=== PATIENT | male | born 1975 | race Caucasian/White ===

== ENCOUNTER 2019-11-20 16:49 | Inpatient (IN) | payer OTHER ==
[2019-11-20 18:47] VITALS: BMI 27.3
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
[2019-11-20] MEDS ORDERED: P-EPHED 60MG/TRIPROLIDI 2.5MG TABLET PO PRN (19:40)
[2019-11-20] MEDS ORDERED: MAGNESIUM HYDROX 2400MG/30ML ORAL SUSPENSION 30 ML CUP PO PRN (19:40)
[2019-11-20] MEDS ORDERED: ACETAMINOPHEN 325 MG TABLET (FP) PO PRN (19:40)
[2019-11-20] MEDS ORDERED: MAG HYDROX/AL HYDROX/SIMETH 30 ML UNIT-DOSE CUP PO PRN (19:40)
[2019-11-20] MEDS ORDERED: LOPERAMIDE HCL 2 MG CAPSULE PO PRN (19:40)
[2019-11-20] MEDS ORDERED: MAGNESIUM CITRATE 300 ML BOTTLE PO PRN (19:40)
[2019-11-20] MEDS ORDERED: NICOTINE POLACRILEX 2 MG GUM BUC PRN (19:40)
[2019-11-20] MEDS ORDERED: MENTHOL/PHENOL 1 EACH UD MM PRN (19:40)
[2019-11-20] MEDS ORDERED: guaiFENesin 200 MG/10 ML 10 ML UNIT-DOSE CUPS PO PRN (19:40)
[2019-11-20] MEDS ORDERED: ALBUTEROL SO4 HFA INHALER IH PRN (19:45)
[2019-11-20] MEDS ORDERED: BUPRENORPHINE/NALOXONE 2 MG/0.5 MG FILM PACKET SL ONE (19:55)
[2019-11-20] MEDS: amLODIPine BESYLATE 5 MG TABLET (FP) PO SCH (21:21)
[2019-11-20] MEDS: MELATONIN 5 MG TABLETS PO PRN (21:21)
[2019-11-20] MEDS: THIAMINE HCL 100 MG TABLET (FP) PO SCH (21:21)
[2019-11-21] MEDS ORDERED: BUPRENORPHINE/NALOXONE 4 MG/1 MG FILM PACKET SL ONE (06:00)
[2019-11-21 10:15] LABS: HEMATOCRIT 42.1 % (35.4-49); HEMOGLOBIN 13.9 GM/dL (11.7-16.9); MCH 28.1 pg (25.7-33.7); MEAN PLT VOLUME 8.4 fl (7.5-11.1); PLATELET COUNT 224 K/MM3 (134-434); RBC 4.95 M/mm3 (4.00-5.60); RDW 14.3 % (11.9-15.9); WHITE BLOOD COUNT 6.1 K/mm3 (4.0-10.0)
[2019-11-21 10:25] LABS: ALBUMIN 3.4 g/dl (3.4-5.0); BILIRUBIN,TOTAL 1.4 mg/dL (0.2-1); CALCIUM 8.7 mg/dL (8.5-10.1); CREATININE 1.3 mg/dL (0.55-1.3); POTASSIUM 3.6 mmol/L (3.5-5.1); TOT PROT 6.4 g/dl (6.4-8.2)
[2019-11-21] MEDS: hydrOXYzine PAMOATE 25 MG CAPSULE (FP) PO PRN ×2 (10:37→21:24)
[2019-11-21] MEDS: PRENATAL VITAMINS W/ FOLIC ACID TABLET (FP) PO SCH (10:37)
[2019-11-21] MEDS: amLODIPine BESYLATE 5 MG TABLET (FP) PO SCH (10:37)
--- NOTE | 2019-11-21 10:49 | PN ---
[facility] Progress Note Note: Pt is a 44 y/o male with a hx of polysubstance use disorder admitted yesterday from [facility]. Pt reports he takes Suboxone 8 mg sl TID at [facility] on [address] [place] [address] Richards. Pt reports he took his last dose of suboxone 8mg tid on 11/10/19 due to "i got kicked out of my house and left everything". Pt was restarted on suboxone 2 mg/0.5 mg sl on admission and 4mg/1mg sl this morning but requesting to continue with his regular dose of 8mg sl TID. Vital Signs - 24 hr 11/20/19 11/20/19 11/20/19 18:28 20:50 21:50 Temperature 97.6 F 97.8 F Pulse Rate 87 82 81 Respiratory 18 17 17 Rate Blood Pressure 144/98 139/100 147/104 H 11/21/19 11/21/19 11/21/19 00:30 03:30 07:16 Temperature 97.8 F Pulse Rate 69 Respiratory 18 18 18 Rate Blood Pressure 124/92 Laboratory Results - last 24 hr 11/21/19 11/21/19 08:00 08:00 WBC 6.1 RBC 4.95 Hgb 13.9 Hct 42.1 MCV 85.0 MCH 28.1 MCHC 33.0 RDW 14.3 D Plt Count 224 MPV 8.4 Sodium 139 Potassium 3.6 Chloride 106 Carbon Dioxide 26 Anion Gap 7 L BUN 12.0 Creatinine 1.3 Est GFR (CKD-EPI)AfAm 76.37 Est GFR (CKD-EPI)NonAf 65.90 Random Glucose 124 H Calcium 8.7 Total Bilirubin 1.4 H AST 41 H ALT 18 Alkaline Phosphatase 58 Total Protein 6.4 Albumin 3.4 Verification from RN CARDIOVASCULAR: Others' Prescriptions Patient Name: Florentino Blanca Date: 1975 Address: [address] [place] [address] Sex: Male Rx Written Rx Dispensed Drug Quantity Days Supply Prescriber Name 11/06/2019 11/06/2019 buprenorphine-naloxone 8-2 mg sl film 90 30 Mabel Soriano MD 10/07/2019 10/07/2019 buprenorphine-naloxone 8-2 mg sl film 90 30 Mary Garcia 09/09/2019 09/20/2019 buprenorphine-naloxone 8-2 mg sl film 60 20 Madelyn Huff [facility] 09/09/2019 09/09/2019 buprenorphine-naloxone 8-2 mg sl film 30 10 Madelyn Huff [facility] 08/13/2019 08/13/2019 buprenorphine-naloxone 8-2 mg sl film 90 30 Dyer , Khanh Zhang 07/11/2019 07/13/2019 buprenorphine-naloxone 8-2 mg sl film 90 30 Dyer , Khanh Ortize 06/13/2019 06/13/2019 buprenorphine-naloxone 8-2 mg sl film 90 30 Dyer , Khanh Ortize 05/15/2019 05/15/2019 buprenorphine-naloxone 8-2 mg sl film 90 30 Dyer , Khanh Ortize 04/10/2019 04/12/2019 buprenorphine-naloxone 8-2 mg sl film 90 30 Dyer , Khanh Ortize 03/15/2019 03/15/2019 buprenorphine-naloxone 8-2 mg sl film 90 30 Dyer , Khanh Vicente 02/13/2019 02/13/2019 buprenorphine-naloxone 8-2 mg sl film 90 30 Dyer , Khanh Vicente 01/30/2019 01/30/2019 buprenorphine-naloxone 8-2 mg sl film 45 15 Dyer , Khanh Vicente 01/02/2019 01/02/2019 suboxone 8 mg-2 mg sl film 90 30 Dyer, Khanh Vicente 12/05/2018 12/05/2018 suboxone 8 mg-2 mg sl film 90 30 Dyer, Khanh Ortize 11/22/2018 11/22/2018 suboxone 8 mg-2 mg sl film 45 15 Dyer, Khanh Ortize A/P Suboxone_MAT pt New rehab pt Maintain safety D/w admitting provider who verified pt's dose and we agreed pt will receive suboxone 8mg/2mg sl bid then increase to tid after 1-2 days re-evaluation/ tolerated. Pt is agreeable to poc. Addendum: As per H/P Note:DUR- Suboxone 8mg #90 dispensed 11/06. has been getting this for the last several moths Utox: pos for THC, BZO, Mop, ken, Bup, SOFIYA-0 will admit pt to rehab. Start with Suboxone 2mg now and if tolerated can increase to suboxone 8mg TID- d/w pt who understands the small risk of precipitated withdrawal. Pt is in withdrawal.
[2019-11-21] MEDS: MELATONIN 5 MG TABLETS PO PRN (21:22)
[2019-11-21] MEDS: THIAMINE HCL 100 MG TABLET (FP) PO SCH (21:22)
[2019-11-21] MEDS: BUPRENORPHINE/NALOXONE 8 MG/2 MG FILM PACKET SL SCH (21:24)
[2019-11-22] MEDS: hydrOXYzine PAMOATE 25 MG CAPSULE (FP) PO PRN (06:28)
[2019-11-22] MEDS: IBUPROFEN 400 MG TABLET (FP) PO PRN ×2 (06:28→20:02)
[2019-11-22] MEDS: PRENATAL VITAMINS W/ FOLIC ACID TABLET (FP) PO SCH (10:07)
[2019-11-22] MEDS: amLODIPine BESYLATE 5 MG TABLET (FP) PO SCH (10:07)
[2019-11-22] MEDS: BUPRENORPHINE/NALOXONE 8 MG/2 MG FILM PACKET SL SCH ×2 (10:08→21:32)
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
[2019-11-22] MEDS: hydrOXYzine PAMOATE 50 MG CAPSULE (FP) PO PRN ×3 (11:20→20:02)
[2019-11-22 15:24] LABS: URINE APPEARANCE CLOUDY; URINE BILIRUBIN NEGATIVE (NEGATIVE); URINE COLOR YELLOW; URINE GLUCOSE (UA) NEGATIVE (NEGATIVE); URINE KETONE NEGATIVE (NEGATIVE); URINE LEUK ESTERASE NEGATIVE (NEGATIVE); URINE NITRITE NEGATIVE (NEGATIVE); URINE PROTEIN NEGATIVE (NEGATIVE)
[2019-11-22] MEDS: QUEtiapine FUMARATE 100 MG TABLET (FP) PO SCH (21:31)
[2019-11-22] MEDS: THIAMINE HCL 100 MG TABLET (FP) PO SCH (21:31)
[2019-11-22] MEDS: MELATONIN 5 MG TABLETS PO PRN (21:31)
[2019-11-22] MEDS ORDERED: hydrOXYzine PAMOATE 50 MG CAPSULE (FP) PO PRN (22:00)
[2019-11-23] MEDS: hydrOXYzine PAMOATE 50 MG CAPSULE (FP) PO PRN ×2 (08:48→19:04)
[2019-11-23] MEDS: IBUPROFEN 400 MG TABLET (FP) PO PRN ×2 (08:48→19:03)
[2019-11-23] MEDS: BUPRENORPHINE/NALOXONE 8 MG/2 MG FILM PACKET SL SCH ×2 (10:34→21:23)
[2019-11-23] MEDS: amLODIPine BESYLATE 5 MG TABLET (FP) PO SCH (10:34)
[2019-11-23] MEDS: PRENATAL VITAMINS W/ FOLIC ACID TABLET (FP) PO SCH (10:34)
[2019-11-23] MEDS: QUEtiapine FUMARATE 100 MG TABLET (FP) PO SCH (21:23)
[2019-11-23] MEDS: THIAMINE HCL 100 MG TABLET (FP) PO SCH (21:23)
[2019-11-24] MEDS: amLODIPine BESYLATE 5 MG TABLET (FP) PO SCH (10:16)
[2019-11-24] MEDS: PRENATAL VITAMINS W/ FOLIC ACID TABLET (FP) PO SCH (10:16)
[2019-11-24] MEDS: BUPRENORPHINE/NALOXONE 8 MG/2 MG FILM PACKET SL SCH ×2 (10:18→21:28)
[2019-11-24] MEDS: hydrOXYzine PAMOATE 50 MG CAPSULE (FP) PO PRN ×2 (10:18→18:32)
[2019-11-24] MEDS: IBUPROFEN 400 MG TABLET (FP) PO PRN (10:18)
[2019-11-24] MEDS: THIAMINE HCL 100 MG TABLET (FP) PO SCH (21:28)
[2019-11-24] MEDS: QUEtiapine FUMARATE 100 MG TABLET (FP) PO SCH (21:28)
[2019-11-24] MEDS: MELATONIN 5 MG TABLETS PO PRN (21:28)
[2019-11-25] MEDS: BUPRENORPHINE/NALOXONE 8 MG/2 MG FILM PACKET SL SCH ×2 (10:27→21:54)
[2019-11-25] MEDS: amLODIPine BESYLATE 5 MG TABLET (FP) PO SCH (10:27)
[2019-11-25] MEDS: hydrOXYzine PAMOATE 50 MG CAPSULE (FP) PO PRN ×2 (10:27→21:55)
[2019-11-25] MEDS: PRENATAL VITAMINS W/ FOLIC ACID TABLET (FP) PO SCH (10:27)
--- NOTE | 2019-11-25 14:33 | PN ---
[facility] Progress Note Note: Patient reports difficulty sleeping at night due to feeling anxious. He is currently on Vistaril 50 mg po Q 4hrs, melatonin 5 mg/hs prn and Seroquel 100 mg /hs. He requests to have Vistaril 100 mg/hs . Vistaril 100 mg/hs is ordered
[2019-11-25] MEDS: QUEtiapine FUMARATE 100 MG TABLET (FP) PO SCH (21:54)
[2019-11-25] MEDS: THIAMINE HCL 100 MG TABLET (FP) PO SCH (21:54)
[2019-11-25] MEDS: MELATONIN 5 MG TABLETS PO PRN (21:59)
[2019-11-26] MEDS: hydrOXYzine PAMOATE 50 MG CAPSULE (FP) PO PRN ×4 (06:35→21:45)
[2019-11-26] MEDS: amLODIPine BESYLATE 5 MG TABLET (FP) PO SCH (10:22)
[2019-11-26] MEDS: PRENATAL VITAMINS W/ FOLIC ACID TABLET (FP) PO SCH (10:22)
[2019-11-26] MEDS: IBUPROFEN 400 MG TABLET (FP) PO PRN (10:26)
[2019-11-26] MEDS: BUPRENORPHINE/NALOXONE 8 MG/2 MG FILM PACKET SL SCH ×3 (10:27→21:46)
--- NOTE | 2019-11-26 12:24 | PN ---
[facility] Progress Note Note: Pt is requesting to be put back on his suboxone 8mg/2mg sl TID. Pt is currently on twice daily dosing but reports anxiety and tensed and reports he feels fine when on his regular dose. Vital Signs - 24 hr 11/26/19 11/26/19 11/26/19 00:30 03:30 07:12 Temperature 97.4 F L Pulse Rate 76 Respiratory 18 18 18 Rate Blood Pressure 132/92 11/26/19 11/26/19 10:00 11:34 Temperature Pulse Rate 89 89 Respiratory 18 18 Rate Blood Pressure 103/59 L 122/90 Alert o x 3,denies s/h/i nad oob ambulating with steady gait A/P suboxone MAT Increase to Suboxone 8mg/2mg sl TID D/w patient who states he is going back to his suboxone provider Khanh James after rehab treatment on discharge at [facility] on [address], [place].
[2019-11-26] MEDS: QUEtiapine FUMARATE 100 MG TABLET (FP) PO SCH (21:45)
[2019-11-26] MEDS: MELATONIN 5 MG TABLETS PO PRN (21:46)
[2019-11-26] MEDS: THIAMINE HCL 100 MG TABLET (FP) PO SCH (22:06)
[2019-11-27] MEDS: hydrOXYzine PAMOATE 50 MG CAPSULE (FP) PO PRN ×4 (06:13→21:47)
[2019-11-27] MEDS: BUPRENORPHINE/NALOXONE 8 MG/2 MG FILM PACKET SL SCH ×3 (06:13→21:48)
[2019-11-27] MEDS: amLODIPine BESYLATE 5 MG TABLET (FP) PO SCH (10:46)
[2019-11-27] MEDS: PRENATAL VITAMINS W/ FOLIC ACID TABLET (FP) PO SCH (10:46)
[2019-11-27] MEDS: MELATONIN 5 MG TABLETS PO PRN (21:48)
[2019-11-27] MEDS: QUEtiapine FUMARATE 100 MG TABLET (FP) PO SCH (21:48)
[2019-11-27] MEDS: THIAMINE HCL 100 MG TABLET (FP) PO SCH (21:48)
[2019-11-28] MEDS: BUPRENORPHINE/NALOXONE 8 MG/2 MG FILM PACKET SL SCH ×3 (06:25→21:36)
[2019-11-28] MEDS: hydrOXYzine PAMOATE 50 MG CAPSULE (FP) PO PRN ×4 (06:26→21:37)
[2019-11-28] MEDS: amLODIPine BESYLATE 5 MG TABLET (FP) PO SCH (10:34)
[2019-11-28] MEDS: PRENATAL VITAMINS W/ FOLIC ACID TABLET (FP) PO SCH (10:34)
[2019-11-28] MEDS: IBUPROFEN 400 MG TABLET (FP) PO PRN (10:35)
[2019-11-28] MEDS: QUEtiapine FUMARATE 100 MG TABLET (FP) PO SCH (21:35)
[2019-11-28] MEDS: MELATONIN 5 MG TABLETS PO PRN (21:36)
[2019-11-28] MEDS: THIAMINE HCL 100 MG TABLET (FP) PO SCH (21:36)
[2019-11-29] MEDS: BUPRENORPHINE/NALOXONE 8 MG/2 MG FILM PACKET SL SCH ×3 (06:08→21:43)
[2019-11-29] MEDS: hydrOXYzine PAMOATE 50 MG CAPSULE (FP) PO PRN ×4 (06:08→21:44)
[2019-11-29] MEDS: PRENATAL VITAMINS W/ FOLIC ACID TABLET (FP) PO SCH (10:41)
[2019-11-29] MEDS: amLODIPine BESYLATE 5 MG TABLET (FP) PO SCH (10:41)
[2019-11-29] MEDS: QUEtiapine FUMARATE 100 MG TABLET (FP) PO SCH (21:44)
[2019-11-29] MEDS: MELATONIN 5 MG TABLETS PO PRN (21:44)
[2019-11-29] MEDS: THIAMINE HCL 100 MG TABLET (FP) PO SCH (21:44)
[2019-11-30] MEDS: hydrOXYzine PAMOATE 50 MG CAPSULE (FP) PO PRN ×4 (06:30→23:07)
[2019-11-30] MEDS: BUPRENORPHINE/NALOXONE 8 MG/2 MG FILM PACKET SL SCH ×3 (06:30→21:46)
[2019-11-30] MEDS: IBUPROFEN 400 MG TABLET (FP) PO PRN ×2 (10:19→18:44)
[2019-11-30] MEDS: amLODIPine BESYLATE 5 MG TABLET (FP) PO SCH (10:19)
[2019-11-30] MEDS: PRENATAL VITAMINS W/ FOLIC ACID TABLET (FP) PO SCH (10:19)
[2019-11-30] MEDS: THIAMINE HCL 100 MG TABLET (FP) PO SCH (21:43)
[2019-11-30] MEDS: QUEtiapine FUMARATE 100 MG TABLET (FP) PO SCH (21:43)
[2019-11-30] MEDS: MELATONIN 5 MG TABLETS PO PRN (21:44)
[2019-12-01] MEDS: BUPRENORPHINE/NALOXONE 8 MG/2 MG FILM PACKET SL SCH ×3 (06:19→21:47)
[2019-12-01] MEDS: hydrOXYzine PAMOATE 50 MG CAPSULE (FP) PO PRN ×3 (06:21→21:45)
[2019-12-01] MEDS: PRENATAL VITAMINS W/ FOLIC ACID TABLET (FP) PO SCH (10:18)
[2019-12-01] MEDS: amLODIPine BESYLATE 5 MG TABLET (FP) PO SCH (10:18)
[2019-12-01] MEDS: IBUPROFEN 400 MG TABLET (FP) PO PRN (21:45)
[2019-12-01] MEDS: QUEtiapine FUMARATE 100 MG TABLET (FP) PO SCH (21:45)
[2019-12-01] MEDS: THIAMINE HCL 100 MG TABLET (FP) PO SCH (21:45)
[2019-12-01] MEDS: MELATONIN 5 MG TABLETS PO PRN (21:46)
[2019-12-02] MEDS: BUPRENORPHINE/NALOXONE 8 MG/2 MG FILM PACKET SL SCH ×3 (06:18→21:39)
[2019-12-02] MEDS: hydrOXYzine PAMOATE 50 MG CAPSULE (FP) PO PRN ×3 (06:18→21:37)
[2019-12-02] MEDS: PRENATAL VITAMINS W/ FOLIC ACID TABLET (FP) PO SCH (11:22)
[2019-12-02] MEDS: amLODIPine BESYLATE 5 MG TABLET (FP) PO SCH (11:22)
[2019-12-02] MEDS: IBUPROFEN 400 MG TABLET (FP) PO PRN ×2 (14:44→21:38)
[2019-12-02] MEDS: QUEtiapine FUMARATE 100 MG TABLET (FP) PO SCH (21:37)
[2019-12-02] MEDS: THIAMINE HCL 100 MG TABLET (FP) PO SCH (21:37)
[2019-12-02] MEDS: MELATONIN 5 MG TABLETS PO PRN (21:38)
[2019-12-03] MEDS: BUPRENORPHINE/NALOXONE 8 MG/2 MG FILM PACKET SL SCH ×2 (06:26→21:44)
[2019-12-03] MEDS: hydrOXYzine PAMOATE 50 MG CAPSULE (FP) PO PRN ×4 (06:26→21:45)
[2019-12-03] MEDS: PRENATAL VITAMINS W/ FOLIC ACID TABLET (FP) PO SCH (10:33)
[2019-12-03] MEDS: amLODIPine BESYLATE 5 MG TABLET (FP) PO SCH (10:33)
[2019-12-03] MEDS: IBUPROFEN 400 MG TABLET (FP) PO PRN (10:34)
[2019-12-03] MEDS ORDERED: BUPRENORPHINE/NALOXONE 8 MG/2 MG FILM PACKET SL ONE (14:43)
[2019-12-03] MEDS: THIAMINE HCL 100 MG TABLET (FP) PO SCH (21:44)
[2019-12-03] MEDS: QUEtiapine FUMARATE 100 MG TABLET (FP) PO SCH (21:44)
[2019-12-03] MEDS: MELATONIN 5 MG TABLETS PO PRN (21:45)
[2019-12-04] MEDS: BUPRENORPHINE/NALOXONE 8 MG/2 MG FILM PACKET SL SCH ×3 (06:10→21:51)
[2019-12-04] MEDS: hydrOXYzine PAMOATE 50 MG CAPSULE (FP) PO PRN ×4 (06:11→21:52)
[2019-12-04] MEDS: PRENATAL VITAMINS W/ FOLIC ACID TABLET (FP) PO SCH (11:12)
[2019-12-04] MEDS: amLODIPine BESYLATE 5 MG TABLET (FP) PO SCH (11:12)
[2019-12-04] MEDS: IBUPROFEN 400 MG TABLET (FP) PO PRN ×2 (11:12→17:40)
[2019-12-04] MEDS: THIAMINE HCL 100 MG TABLET (FP) PO SCH (21:51)
[2019-12-04] MEDS: QUEtiapine FUMARATE 100 MG TABLET (FP) PO SCH (21:51)
[2019-12-04] MEDS: MELATONIN 5 MG TABLETS PO PRN (21:51)
[2019-12-05] MEDS: IBUPROFEN 400 MG TABLET (FP) PO PRN ×3 (06:49→21:42)
[2019-12-05] MEDS: hydrOXYzine PAMOATE 50 MG CAPSULE (FP) PO PRN ×3 (06:49→21:40)
[2019-12-05] MEDS: BUPRENORPHINE/NALOXONE 8 MG/2 MG FILM PACKET SL SCH ×3 (06:50→21:43)
[2019-12-05] MEDS: PRENATAL VITAMINS W/ FOLIC ACID TABLET (FP) PO SCH (10:01)
[2019-12-05] MEDS: amLODIPine BESYLATE 5 MG TABLET (FP) PO SCH (10:01)
[2019-12-05] MEDS: THIAMINE HCL 100 MG TABLET (FP) PO SCH (21:40)
[2019-12-05] MEDS: QUEtiapine FUMARATE 100 MG TABLET (FP) PO SCH (21:40)
[2019-12-05] MEDS: MELATONIN 5 MG TABLETS PO PRN (21:41)
[2019-12-06] MEDS: hydrOXYzine PAMOATE 50 MG CAPSULE (FP) PO PRN ×3 (06:11→21:28)
[2019-12-06] MEDS: IBUPROFEN 400 MG TABLET (FP) PO PRN ×2 (06:11→21:29)
[2019-12-06] MEDS: BUPRENORPHINE/NALOXONE 8 MG/2 MG FILM PACKET SL SCH ×3 (06:12→21:28)
[2019-12-06] MEDS: PRENATAL VITAMINS W/ FOLIC ACID TABLET (FP) PO SCH (09:04)
[2019-12-06] MEDS: amLODIPine BESYLATE 5 MG TABLET (FP) PO SCH (09:04)
[2019-12-06] MEDS: THIAMINE HCL 100 MG TABLET (FP) PO SCH (21:28)
[2019-12-06] MEDS: QUEtiapine FUMARATE 100 MG TABLET (FP) PO SCH (21:28)
[2019-12-06] MEDS: MELATONIN 5 MG TABLETS PO PRN (21:28)
[2019-12-07] MEDS: BUPRENORPHINE/NALOXONE 8 MG/2 MG FILM PACKET SL SCH ×3 (06:12→21:30)
[2019-12-07] MEDS: IBUPROFEN 400 MG TABLET (FP) PO PRN ×2 (06:12→12:35)
[2019-12-07] MEDS: hydrOXYzine PAMOATE 50 MG CAPSULE (FP) PO PRN ×3 (06:13→21:31)
[2019-12-07] MEDS: amLODIPine BESYLATE 5 MG TABLET (FP) PO SCH (10:59)
[2019-12-07] MEDS: PRENATAL VITAMINS W/ FOLIC ACID TABLET (FP) PO SCH (10:59)
[2019-12-07] MEDS: QUEtiapine FUMARATE 100 MG TABLET (FP) PO SCH (21:31)
[2019-12-07] MEDS: THIAMINE HCL 100 MG TABLET (FP) PO SCH (21:31)
[2019-12-07] MEDS: MELATONIN 5 MG TABLETS PO PRN (21:31)
[2019-12-08] MEDS: BUPRENORPHINE/NALOXONE 8 MG/2 MG FILM PACKET SL SCH ×3 (07:40→22:01)
[2019-12-08] MEDS: hydrOXYzine PAMOATE 50 MG CAPSULE (FP) PO PRN ×2 (07:40→22:00)
[2019-12-08] MEDS: PRENATAL VITAMINS W/ FOLIC ACID TABLET (FP) PO SCH (10:14)
[2019-12-08] MEDS: amLODIPine BESYLATE 5 MG TABLET (FP) PO SCH (10:14)
[2019-12-08] MEDS: IBUPROFEN 400 MG TABLET (FP) PO PRN ×2 (10:15→18:07)
[2019-12-08] MEDS: THIAMINE HCL 100 MG TABLET (FP) PO SCH (22:00)
[2019-12-08] MEDS: MELATONIN 5 MG TABLETS PO PRN (22:01)
[2019-12-08] MEDS: QUEtiapine FUMARATE 100 MG TABLET (FP) PO SCH (22:01)
[2019-12-09] MEDS: BUPRENORPHINE/NALOXONE 8 MG/2 MG FILM PACKET SL SCH ×3 (06:34→21:37)
[2019-12-09] MEDS: PRENATAL VITAMINS W/ FOLIC ACID TABLET (FP) PO SCH (10:21)
[2019-12-09] MEDS: IBUPROFEN 400 MG TABLET (FP) PO PRN ×2 (10:21→21:36)
[2019-12-09] MEDS: hydrOXYzine PAMOATE 50 MG CAPSULE (FP) PO PRN ×3 (10:22→21:35)
[2019-12-09] MEDS: amLODIPine BESYLATE 5 MG TABLET (FP) PO SCH (11:14)
[2019-12-09] MEDS: QUEtiapine FUMARATE 100 MG TABLET (FP) PO SCH (21:35)
[2019-12-09] MEDS: MELATONIN 5 MG TABLETS PO PRN (21:35)
[2019-12-09] MEDS: THIAMINE HCL 100 MG TABLET (FP) PO SCH (21:35)
[2019-12-10] MEDS: BUPRENORPHINE/NALOXONE 8 MG/2 MG FILM PACKET SL SCH ×3 (06:18→21:45)
[2019-12-10] MEDS: hydrOXYzine PAMOATE 50 MG CAPSULE (FP) PO PRN ×3 (06:18→21:44)
[2019-12-10] MEDS: IBUPROFEN 400 MG TABLET (FP) PO PRN ×2 (10:27→21:45)
[2019-12-10] MEDS: amLODIPine BESYLATE 5 MG TABLET (FP) PO SCH (10:27)
[2019-12-10] MEDS: PRENATAL VITAMINS W/ FOLIC ACID TABLET (FP) PO SCH (10:27)
[2019-12-10] MEDS: THIAMINE HCL 100 MG TABLET (FP) PO SCH (21:43)
[2019-12-10] MEDS: QUEtiapine FUMARATE 100 MG TABLET (FP) PO SCH (21:43)
[2019-12-10] MEDS: MELATONIN 5 MG TABLETS PO PRN (21:44)
[2019-12-11] MEDS: BUPRENORPHINE/NALOXONE 8 MG/2 MG FILM PACKET SL SCH ×3 (06:22→21:43)
[2019-12-11] MEDS: hydrOXYzine PAMOATE 50 MG CAPSULE (FP) PO PRN ×4 (06:23→21:43)
[2019-12-11] MEDS: amLODIPine BESYLATE 5 MG TABLET (FP) PO SCH (10:35)
[2019-12-11] MEDS: PRENATAL VITAMINS W/ FOLIC ACID TABLET (FP) PO SCH (10:35)
[2019-12-11] MEDS: QUEtiapine FUMARATE 100 MG TABLET (FP) PO SCH (21:43)
[2019-12-11] MEDS: THIAMINE HCL 100 MG TABLET (FP) PO SCH (21:43)
[2019-12-11] MEDS: MELATONIN 5 MG TABLETS PO PRN (21:44)
[2019-12-12] MEDS: BUPRENORPHINE/NALOXONE 8 MG/2 MG FILM PACKET SL SCH ×3 (06:22→21:31)
[2019-12-12] MEDS: hydrOXYzine PAMOATE 50 MG CAPSULE (FP) PO PRN ×4 (06:23→21:33)
[2019-12-12 07:09] VITALS: TEMP 97.5
[2019-12-12] MEDS: IBUPROFEN 400 MG TABLET (FP) PO PRN ×2 (10:23→21:31)
[2019-12-12] MEDS: PRENATAL VITAMINS W/ FOLIC ACID TABLET (FP) PO SCH (10:23)
[2019-12-12] MEDS: amLODIPine BESYLATE 5 MG TABLET (FP) PO SCH (10:23)
--- NOTE | 2019-12-12 12:13 | PN ---
[facility] Progress Note Note: Patient is scheduled for discharge tomorrow. Script for 30 days supply will be electronically transmitted to [facility] at [address] [place], [place] [id number]
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
[2019-12-12] MEDS: QUEtiapine FUMARATE 100 MG TABLET (FP) PO SCH (21:31)
[2019-12-12] MEDS: MELATONIN 5 MG TABLETS PO PRN (21:31)
[2019-12-12] MEDS: THIAMINE HCL 100 MG TABLET (FP) PO SCH (21:31)
[2019-12-13] MEDS: hydrOXYzine PAMOATE 50 MG CAPSULE (FP) PO PRN (06:04)
[2019-12-13] MEDS: BUPRENORPHINE/NALOXONE 8 MG/2 MG FILM PACKET SL SCH (06:04)
[2019-12-13 07:05] VITALS: BP 117/73; PULSE 94
[2019-12-13] MEDS: PRENATAL VITAMINS W/ FOLIC ACID TABLET (FP) PO SCH (09:22)
[2019-12-13] MEDS: amLODIPine BESYLATE 5 MG TABLET (FP) PO SCH (09:22)
--- NOTE | 2019-12-13 10:54 | PN ---
[facility] Progress Note Note: Pt was seen this morning and was discharged as scheduled. Vital Signs - 24 hr 12/13/19 12/13/19 00:30 07:05 Temperature 97.5 F L Pulse Rate 94 H Respiratory 18 18 Rate Blood Pressure 117/73 Alert o x 3,well groomed, denies s/h/i nad oob ambulating with steady gait. A/P Medically stable D/C pt today reminded to follow up with scheduled aftercare appointments as in his D/C package. D/w pt to follow up with his Suboxone MAT with his prescriber for further management. Pt verbalized understanding.
== END 2019-12-13 10:05 | disposition home or self-care (01) | DRG 772 ==
LOC: YASAS 16:49 → Y5N 19:20
PROVIDERS: ADMIT Neuromusculoskeletal Medicine & OMM; ATTEND Neuromusculoskeletal Medicine & OMM
PROC: HZ42ZZZ Group Counseling for Substance Abuse Treatment, Cognitive-Behavioral (ICD-10-PCS; principal; 2019-11-20)
DX: F11.20 Opioid dependence, uncomplicated (principal); F13.20 Sedative, hypnotic or anxiolytic dependence, uncomplicated; F14.20 Cocaine dependence, uncomplicated; F12.20 Cannabis dependence, uncomplicated; F17.210 Nicotine dependence, cigarettes, uncomplicated; F19.282 Other psychoactive substance dependence with psychoactive substance-induced sleep disorder; F19.24 Other psychoactive substance dependence with psychoactive substance-induced mood disorder; F31.9 Bipolar disorder, unspecified; I10 Essential (primary) hypertension; J45.909 Unspecified asthma, uncomplicated; G47.00 Insomnia, unspecified; M79.661 Pain in right lower leg; Z99.89 Dependence on other enabling machines and devices; Z91.013 Allergy to seafood; Z91.018 Allergy to other foods; Z59.0 Homelessness
CPT/HCPCS: 36415; 80053; 81003; 85027; 86593

== ENCOUNTER 2024-09-25 17:02 | Inpatient (IN) | payer OTHER ==
[2024-09-25 18:52] VITALS: BMI 25.8
[2024-09-25] MEDS ORDERED: BENZONATATE 200 MG CAPSULE PO PRN (22:50)
[2024-09-25] MEDS ORDERED: BENZOCAINE/MENTHOL (CHLORASEPTIC ) LOZENGE MM PRN (22:50)
[2024-09-25] MEDS ORDERED: NICOTINE POLACRILEX 2 MG GUM BUC PRN (22:50)
[2024-09-25] MEDS ORDERED: POLYETHYLENE GLYCOL (HEALTHYLAX) 3350 17 GM PACKET PO PRN (22:50)
[2024-09-25] MEDS ORDERED: MAGNESIUM HYDROX 2400MG/30ML ORAL SUSPENSION 30 ML CUP PO PRN (22:50)
[2024-09-25] MEDS ORDERED: NALOXONE (NARCAN) HCL 4 MG/0.1 ML SPRAY NS PRN (22:50)
[2024-09-25] MEDS ORDERED: DICYCLOMINE HCL 10 MG CAPSULE PO PRN (22:50)
[2024-09-25] MEDS ORDERED: LOPERAMIDE HCL 2 MG CAPSULE PO PRN (22:50)
[2024-09-25] MEDS ORDERED: BISMUTH SUBSALICYLATE 524 MG/30 ML PO PRN (22:50)
[2024-09-25] MEDS ORDERED: MAG HYDROX/AL HYDROX/SIMETH 30 ML UNIT-DOSE CUP PO PRN (22:50)
[2024-09-25] MEDS ORDERED: guaiFENesin 600 MG TABLET.ER (FP) PO PRN (22:50)
[2024-09-25] MEDS ORDERED: ONDANSETRON *ODT* 4 MG TABLET SL PRN (22:50)
[2024-09-25] MEDS ORDERED: cloNIDine HCL 0.1 MG TABLET PO PRN (22:54)
[2024-09-26] MEDS ORDERED: methaDONE HCL 10 MG TABLET (FOR DETOX USE ONLY) ONE (00:01)
[2024-09-26] MEDS: methaDONE HCL 10 MG TABLET (FOR DETOX USE ONLY) PO ONE ×2 (00:12→09:35)
[2024-09-26] MEDS ORDERED: ALBUTEROL SO4 HFA INHALER IH PRN (07:24)
[2024-09-26] MEDS: BUPRENORPHINE/NALOXONE 0.5 MG/0.125 MG FILM SL ONE ×2 (09:40→22:18)
[2024-09-26] MEDS: amLODIPine BESYLATE 5 MG TABLET (FP) PO SCH (09:49)
[2024-09-26] MEDS: PRENATAL VITAMINS W/ FOLIC ACID TABLET (FP) PO SCH (09:49)
[2024-09-26] MEDS: cloNIDine HCL 0.1 MG TABLET PO SCH (09:49)
[2024-09-26] MEDS: NICOTINE 14 MG/24 HOURS TOPICAL PATCH TD SCH (09:51)
[2024-09-26] MEDS: IBUPROFEN 600 MG TABLET (FP) PO PRN (11:08)
[2024-09-26 12:33] LABS: HEMATOCRIT 42.6 % (35.4-49); HEMOGLOBIN 14.3 GM/dL (11.7-16.9); MCH 30.1 pg (25.7-33.7); MCHC 33.5 g/dl (32.0-35.9); MEAN CELL VOLUME 89.9 fl (80-96); MEAN PLT VOLUME 8.1 fl (7.5-11.1); PLATELET COUNT 245 10^3/uL (134-434); RBC 4.74 M/mm3 (4.00-5.60); RDW 13.4 % (11.9-15.9); WHITE BLOOD COUNT 8.6 K/mm3 (4.0-10.0)
[2024-09-26 12:50] LABS: CHLORIDE 107 mmol/L (98-107); SODIUM 138 mmol/L (136-145)
[2024-09-26 12:54] LABS: ALBUMIN 3.5 g/dl (3.4-5.0); BLOOD UREA NITROGEN 17.8 mg/dL (7-18); CALCIUM 9.3 mg/dL (8.5-10.1); GLUCOSE,RANDOM 127 mg/dL (74-106)
[2024-09-26 12:56] LABS: CREATININE 1.2 mg/dL (0.55-1.3)
[2024-09-26 12:57] LABS: SGOT/AST 22 U/L (15-37); SGPT/ALT 28 U/L (13-61)
[2024-09-26 12:59] LABS: ALK PHOS 76 U/L (45-117); BILIRUBIN,TOTAL 0.3 mg/dL (0.2-1); TOT PROT 6.8 g/dl (6.4-8.2)
[2024-09-26 13:10] LABS: ANION GAP 8 mmol/L (4-13); CO2 23 mmol/L (21-32)
[2024-09-26] MEDS: hydrOXYzine PAMOATE 25 MG CAPSULE (FP) PO PRN (17:18)
[2024-09-26] MEDS ORDERED: MELATONIN 5 MG TABLETS PO SCH (22:00)
[2024-09-26] MEDS: THIAMINE 100 MG TABLET PO SCH (22:13)
[2024-09-26] MEDS: diphenhydrAMINE HCL 25 MG CAPSULE (FP) PO SCH (22:13)
[2024-09-26] MEDS: MIRTAZAPINE 15 MG TABLET (FP) PO SCH (22:18)
[2024-09-27] MEDS: METHOCARBAMOL 500 MG TABLET PO PRN (01:02)
[2024-09-27] MEDS: BUPRENORPHINE/NALOXONE 0.5 MG/0.125 MG FILM SL SCH (09:36)
[2024-09-27] MEDS ORDERED: methaDONE HCL 10 MG TABLET (FOR DETOX USE ONLY) PO ONE (10:00)
[2024-09-28] MEDS: ACETAMINOPHEN 325 MG TABLET (FP) PO PRN (01:01)
[2024-09-28] MEDS: methaDONE HCL 10 MG TABLET (FOR DETOX USE ONLY) PO ONE (10:30)
[2024-09-28] MEDS: BUPRENORPHINE/NALOXONE 2 MG/0.5 MG FILM PACKET SL SCH (10:31)
[2024-09-29] MEDS: IBUPROFEN 400 MG TABLET (FP) PO PRN (05:41)
[2024-09-29] MEDS: BUPRENORPHINE/NALOXONE 4 MG/1 MG FILM PACKET SL SCH (09:35)
[2024-09-29] MEDS ORDERED: methaDONE HCL 10 MG TABLET (FOR DETOX USE ONLY) PO ONE (10:00)
[2024-09-30] MEDS: methaDONE HCL 10 MG TABLET (FOR DETOX USE ONLY) PO ONE (10:40)
[2024-09-30] MEDS: BUPRENORPHINE/NALOXONE 8 MG/2 MG FILM PACKET SL SCH (10:40)
[2024-10-01] MEDS: NALOXONE (NYS OPIOID OVERDOSE PROGRAM) 4 MG/0.1 ML SPRAY NS PRN (08:25)
[2024-10-01 08:44] VITALS: BP 147/97; PULSE 102; RESP 18; TEMP 98
[2024-10-01] MEDS: BUPRENORPHINE/NALOXONE 8 MG/2 MG FILM PACKET SL SCH (09:18)
== END 2024-10-01 12:20 | disposition other institution (70) | DRG 773 ==
LOC: YASAS 17:02 → Y6N 23:11
PROVIDERS: ADMIT Allergy & Immunology; ATTEND Surgery
PROC: HZ2ZZZZ Detoxification Services for Substance Abuse Treatment (ICD-10-PCS; principal; 2024-09-25)
DX: F11.23 Opioid dependence with withdrawal (principal); F13.20 Sedative, hypnotic or anxiolytic dependence, uncomplicated; F17.210 Nicotine dependence, cigarettes, uncomplicated; F41.8 Other specified anxiety disorders; G47.00 Insomnia, unspecified; I10 Essential (primary) hypertension; J45.909 Unspecified asthma, uncomplicated; B18.2 Chronic viral hepatitis C
CPT/HCPCS: 36415; 73610-TC-LT-FY; 80053; 80305; 80307; 85027; 86780; 87811; 93005; 93010

== ENCOUNTER 2024-10-01 12:36 | Inpatient (IN) | payer OTHER ==
[2024-10-01] MEDS ORDERED: ACETAMINOPHEN 325 MG TABLET (FP) PO PRN (13:59)
[2024-10-01] MEDS ORDERED: BENZOCAINE/MENTHOL (CHLORASEPTIC ) LOZENGE MM PRN (13:59)
[2024-10-01] MEDS ORDERED: POLYETHYLENE GLYCOL (HEALTHYLAX) 3350 17 GM PACKET PO PRN (13:59)
[2024-10-01] MEDS ORDERED: BENZONATATE 200 MG CAPSULE PO PRN (13:59)
[2024-10-01] MEDS ORDERED: LOPERAMIDE HCL 2 MG CAPSULE PO PRN (13:59)
[2024-10-01] MEDS ORDERED: MAG HYDROX/AL HYDROX/SIMETH 30 ML UNIT-DOSE CUP PO PRN (13:59)
[2024-10-01] MEDS ORDERED: NALOXONE (NARCAN) HCL 4 MG/0.1 ML SPRAY NS PRN (13:59)
[2024-10-01] MEDS ORDERED: guaiFENesin 600 MG TABLET.ER (FP) PO PRN (13:59)
[2024-10-01] MEDS ORDERED: NALOXONE HCL 0.4 MG/ML VIAL IVPUSH PRN (13:59)
[2024-10-01] MEDS ORDERED: MAGNESIUM HYDROX 2400MG/30ML ORAL SUSPENSION 30 ML CUP PO PRN (13:59)
[2024-10-01] MEDS: hydrOXYzine PAMOATE 25 MG CAPSULE (FP) PO PRN (14:14)
[2024-10-01] MEDS: METHOCARBAMOL 500 MG TABLET PO PRN (14:14)
[2024-10-01] MEDS: IBUPROFEN 600 MG TABLET (FP) PO PRN (14:14)
[2024-10-01] MEDS: IBUPROFEN 400 MG TABLET (FP) PO PRN (18:33)
[2024-10-01] MEDS: MELATONIN 5 MG TABLETS PO SCH (21:22)
[2024-10-01] MEDS: THIAMINE 100 MG TABLET PO SCH (21:22)
[2024-10-01] MEDS: BUPRENORPHINE/NALOXONE 8 MG/2 MG FILM PACKET SL SCH (21:25)
[2024-10-01] MEDS: diphenhydrAMINE HCL 25 MG CAPSULE (FP) PO SCH (21:26)
[2024-10-01] MEDS: MIRTAZAPINE 15 MG TABLET (FP) PO SCH (21:26)
[2024-10-01] MEDS ORDERED: QUEtiapine FUMARATE 100 MG TABLET (FP) PO SCH (22:00)
[2024-10-02] MEDS: amLODIPine BESYLATE 5 MG TABLET (FP) PO SCH (09:52)
[2024-10-02] MEDS: NICOTINE 14 MG/24 HOURS TOPICAL PATCH TD SCH (09:52)
[2024-10-02] MEDS: PRENATAL VITAMINS W/ FOLIC ACID TABLET (FP) PO SCH (09:52)
[2024-10-02] MEDS ORDERED: MIRTAZAPINE 15 MG TABLET (FP) PO SCH (10:00)
[2024-10-02 15:44] LABS: HIV INTERPRETATION NEGATIVE (NEGATIVE)
[2024-10-03] MEDS: hydrOXYzine PAMOATE 50 MG CAPSULE (FP) PO PRN (02:50)
[2024-10-04] MEDS: LACTULOSE 20 GM/30 ML UDC (FOR ORAL USE ONLY) PO SCH (21:35)
[2024-10-10 12:34] LABS: INR 1.01 (0.83-1.09); POTASSIUM 4.8 mmol/L (3.5-5.1); PROTHROMBIN TIME (PATIENT) 11.4 SEC (9.7-13.0)
[2024-10-10 12:37] LABS: ALBUMIN 3.4 g/dl (3.4-5.0); CALCIUM 9.6 mg/dL (8.5-10.1)
[2024-10-10 12:40] LABS: CREATININE 1.3 mg/dL (0.55-1.3)
[2024-10-10 12:42] LABS: BILIRUBIN,TOTAL 0.5 mg/dL (0.2-1); TOT PROT 6.9 g/dl (6.4-8.2)
[2024-10-15] MEDS: SUVOREXANT 5 MG TABLET PO PRN (21:13)
[2024-10-15] MEDS: MIRTAZAPINE 15 MG TABLET (FP) PO SCH (21:15)
[2024-10-23] MEDS: propRANOLol HCL 10 MG TABLET PO PRN (10:00)
[2024-10-23] MEDS: SUVOREXANT 10 MG TABLET PO PRN (21:13)
[2024-10-27 15:40] VITALS: RESP 18
[2024-10-27] MEDS: SUVOREXANT 10 MG TABLET PO PRN (21:17)
[2024-10-29 06:49] VITALS: TEMP 97.6
[2024-10-29] MEDS: NALOXONE (NYS OPIOID OVERDOSE PROGRAM) 4 MG/0.1 ML SPRAY NS SCH (09:34)
[2024-10-29 12:19] VITALS: BP 145/80; PULSE 81
== END 2024-10-29 10:25 | disposition home or self-care (01) | DRG 772 ==
LOC: YASAS 12:36 → Y5N 12:37
PROVIDERS: ADMIT Psychiatry & Neurology Pain Medicine; ATTEND Psychiatry & Neurology Pain Medicine
PROC: HZ42ZZZ Group Counseling for Substance Abuse Treatment, Cognitive-Behavioral (ICD-10-PCS; principal; 2024-10-01)
DX: F11.20 Opioid dependence, uncomplicated (principal); F10.20 Alcohol dependence, uncomplicated; F12.20 Cannabis dependence, uncomplicated; F17.210 Nicotine dependence, cigarettes, uncomplicated; F31.9 Bipolar disorder, unspecified; F19.282 Other psychoactive substance dependence with psychoactive substance-induced sleep disorder; F19.280 Other psychoactive substance dependence with psychoactive substance-induced anxiety disorder; F19.24 Other psychoactive substance dependence with psychoactive substance-induced mood disorder; F41.9 Anxiety disorder, unspecified; E72.20 Disorder of urea cycle metabolism, unspecified; G47.00 Insomnia, unspecified; I10 Essential (primary) hypertension; B18.2 Chronic viral hepatitis C
CPT/HCPCS: 36415; 80053; 80305; 80307; 82140; 82962; 83036; 85610; 86803; 87389; 87522